=== PATIENT | female | born 1985 | race Caucasian/White ===

== ENCOUNTER 2023-08-17 19:08 | Emergency (ER) | payer MEDICAID ==
[~2023-08-17] VITALS: Ht 162.6 cm; Wt 68.0 kg
[2023-08-17 19:10] VITALS: BP_SYST 145; PULSE 118; RESP 20; TEMP 98.7; O2SAT 97
[2023-08-17] MEDS ORDERED: HALOPERIDOL LACTATE 5 MG/ML VIAL ONE (19:33)
[2023-08-17] MEDS ORDERED: DIPHENHYDRAMINE INJ 50 MG/ML VIAL ONE (19:34)
[2023-08-17] MEDS ORDERED: LORazepam 2 MG/ML VIAL ONE (19:34)
[2023-08-17] MEDS: LORazepam 2 MG/ML VIAL IM ONE (19:39)
[2023-08-17] MEDS: DIPHENHYDRAMINE INJ 50 MG/ML VIAL IM ONE (19:39)
[2023-08-17] MEDS: HALOPERIDOL LACTATE 5 MG/ML VIAL IM ONE (19:40)
[2023-08-17 20:06] LABS: BASOPHILS # (AUTO) 0.1 K/uL (0.0-0.2); BASOPHILS % (AUTO) 0.9 % (0.0-2.0); EOSINOPHILS # (AUTO) 0.2 K/uL (0.0-0.4); EOSINOPHILS % (AUTO) 2.3 % (0.0-4.0); HEMATOCRIT 36.7 % (36-48); HEMOGLOBIN 12.6 g/dL (12.0-16.0); LYMPHOCYTES # (AUTO) 2.5 K/uL (1.0-5.5); LYMPHOCYTES % (AUTO) 31.7 % (20.5-51.5); MEAN CORPUSCULAR HEMOGLOBIN 31 pg (27-31); MEAN CORPUSCULAR HGB CONC 34 % (32-36); MEAN CORPUSCULAR VOLUME 89 fL (79.0-98.0); MONOCYTES # (AUTO) 0.4 K/uL (0.0-1.0); MONOCYTES % (AUTO) 4.7 % (1.7-9.3); NEUTROPHILS # (AUTO) 4.7 K/uL (1.8-7.7); NEUTROPHILS % (AUTO) 60.4 % (40.0-70.0); PLATELET COUNT (AUTO) 308 K/uL (130-430); RED BLOOD CELL COUNT(AUTO) 4.14 MIL/uL (4.2-6.2); RED CELL DISTRIBUTION WIDTH 14.7 % (9.0-15.0); WHITE BLOOD COUNT (AUTO) 7.8 K/uL (4.8-10.8)
[2023-08-17 20:34] LABS: ALANINE AMINOTRANSFERASE 56 U/L (12-78); ALBUMIN 3.8 g/dL (3.4-4.8); ANION GAP 14 (5-15); ASPARTATE AMINOTRANSFERASE 38 U/L (10-37); CALCIUM 8.4 mg/dL (8.4-11.0); CARBON DIOXIDE 22 mmol/L (23-29); CHLORIDE 103 mmol/L (98-107); CREATININE 0.86 mg/dL (0.55-1.30); GFR AFRICAN AMERICAN 94 mL/min (>90); GLUCOSE 79 mg/dL (74-106); POTASSIUM 3.4 mmol/L (3.5-5.1); SODIUM SERUM 139 mmol/L (136-145); TOTAL BILIRUBIN 0.6 mg/dL (0.0-1.0); TOTAL PROTEIN, SERUM 7.9 g/dL (6.4-8.3); UREA NITROGEN, BLOOD 14 mg/dL (8-21)
[2023-08-17 20:44] LABS: ALCOHOL, BLOOD 335 mg/dL (<10); BILIRUBIN,DIRECT 0.1 mg/dL (0.0-0.3); SALICYLATE 1 mg/dL (3-30)
[2023-08-17 20:46] LABS: GFR NON AFRICAN-AMERICAN 78 mL/min (>90)
[2023-08-17 20:47] LABS: ACETAMINOPHEN < 1 ug/mL (1-30)
[2023-08-17 21:08] LABS: BILIRUBIN,URINE NEGATIVE (NEGATIVE); CLARITY/URINE CLEAR (CLEAR); COLOR,URINE YELLOW (YELLOW); GLUCOSE,URINE NEGATIVE (NEGATIVE); KETONES,URINE NEGATIVE (NEGATIVE); LEUKOCYTE ESTERASE ,URINE NEGATIVE (NEGATIVE); NITRITE, URINE NEGATIVE (NEGATIVE); PROTEIN URINE NEGATIVE (NEGATIVE); UROBILINOGEN,URINE 0.2 (0.2-1.0)
[2023-08-17 21:18] LABS: BLOOD, URINE TRACE (NEGATIVE)
[2023-08-17 21:21] LABS: BENZODIAZEPINE, URINE POSITIVE (NEG <=150)
[2023-08-17 21:22] LABS: BARBITURATE, URINE NEGATIVE (NEG <=200); CANNABINOID, URINE NEGATIVE (NEG <=50); COCAINE, URINE NEGATIVE (NEG <=150); METHAMPHETAMINES SCREEN,URINE NEGATIVE (NEG <=500); OPIATE, URINE NEGATIVE (NEG <=100); PHENCYCLIDINE SCREEN,URINE NEGATIVE (NEG <=25); UR TRICYCLIC ANTIDEPRESSANTS NEGATIVE (NEG <=300); URINE AMPHETAMINE NEGATIVE (NEG <=500); URINE METHADONE NEGATIVE (NEG <=200); URINE OXYCODONE SCREEN NEGATIVE (NEG <=100)
[2023-08-17 21:27] LABS: BACTERIA,URINE RARE /HPF (None Seen)
[2023-08-17] MEDS: NACL 0.9% 1,000 ML IV ONE (23:59)
[2023-08-18 05:38] VITALS: BP_SYST 89; PULSE 80; RESP 20; TEMP 98.1; O2SAT 96
== END 2023-08-18 05:38 | disposition home or self-care (01) ==
LOC: EDBD 19:08 → SED 19:08
DX: F10.129 Alcohol abuse with intoxication, unspecified (principal); F19.10 Other psychoactive substance abuse, uncomplicated; Z20.822 Contact with and (suspected) exposure to COVID-19; I10 Essential (primary) hypertension; Y90.8 Blood alcohol level of 240 mg/100 ml or more
CPT/HCPCS: 99285; 96360; 87426; 80307; 80076; 80048; 81001; 85025; 36415; 81025; 96372; G0482; J1200; J1630; J2060; J7030; G0480; G0481; 81000; 81015